=== PATIENT | male | born 1960 ===

== ENCOUNTER 2021-06-27 01:02 | Inpatient (IN) | payer OTHER ==
[~2021-06-27] VITALS: Ht 180.3 cm; Wt 100.7 kg
[2021-06-27] MEDS ORDERED: BREO ELLIPTA 11 EACH INH (02:06)
[2021-06-27] MEDS ORDERED: TRILEPTAL300 MG PO (02:07)
[2021-06-27] MEDS ORDERED: ZOLOFT100 MG PO (02:08)
[2021-06-27] MEDS ORDERED: BUSPIRONE10 MG PO (02:08)
[2021-06-27] MEDS ORDERED: PROAIR HFA8.5 GM INH (02:11)
[2021-06-27] MEDS ORDERED: SPIRIVA RESPIMAT4 GM INH (02:12)
[2021-06-27 09:07] VITALS: BP 140/81
[2021-06-27 20:00] VITALS: BP 122/67
[2021-06-28 06:47] LABS: BASO % 0.4 % (0.0-1.0); EOS # 0.3 10*3/uL (0.0-0.4); EOS % 6.3 % (1.0-4.0); HEMATOCRIT 42.2 % (42.0-52.0); LYMPH # 1.5 10*3/uL (1.3-4.4); LYMPH % 32.2 % (27.0-41.0); MEAN CELL VOLUME 105.2 fl (80.0-94.0); MEAN CORPUSCULAR HGB 33.4 pg (27.0-31.0); MEAN CORPUSCULAR HGB CONC 31.8 g/dl (33.0-37.0); MEAN PLATELET VOLUME 10.6 fl (9.6-12.3); MONO # 0.4 10*3/uL (0.1-1.0); MONO % 8.9 % (3.0-9.0); NEUT # 2.4 10*3/uL (2.3-7.9); PLATELET COUNT AUTOMATED 127 10*3/uL (130-400); RED BLOOD COUNT 4.01 10*6/uL (4.50-5.90); RED CELL DISTRI WIDTH 14.4 % (0-14.5); WHITE BLOOD COUNT 4.6 10*3/uL (4.8-10.8)
[2021-06-28 06:57] LABS: ALBUMIN 2.6 gm/dl (3.1-4.5); ALKALINE PHOSPHATASE 83 U/L (45-117); BUN 8 mg/dl (7-24); CHLORIDE 107 mmol/L (98-107); CHOLESTEROL 169 mg/dL (<200); CREATININE 0.72 mg/dL (0.70-1.30); LDL CHOLESTEROL 107 mg/dL (9-159); SGOT/AST 27 IU/L (3-35); SGPT/ALT 31 U/L (12-78); SODIUM 141 mmol/L (136-145); TOTAL PROTEIN 6.9 gm/dL (6.4-8.2); TRIGLYCERIDES 119 mg/dl (<150)
[2021-06-28 07:04] LABS: THYROID STIM HORMONE (HS) 0.858 uIU/ml (0.358-4.75)
[2021-06-28 07:25] LABS: VITAMIN D, 25-HYDROXY 30.1 ng/mL (30-100)
[2021-06-28 07:32] VITALS: BP 146/87
[2021-06-28 09:47] LABS: BILIRUBIN Negative (Negative); BLOOD Negative (Negative); CLARITY Clear (Clear); COLOR Yellow (Yellow); GLUCOSE Negative (Negative); KETONE Negative (Negative); LEUKO ESTERASE Negative (Negative); NITRITE Negative (Negative); PH 5.5 (4.5-8.0)
[2021-06-28 10:12] LABS: EPITHELIAL CELLS 0-2; WBC 0-2 wbc/hpf (0-5)
[2021-06-28 19:52] VITALS: BP 146/74
[2021-06-29 08:00] VITALS: BP 146/78
[2021-06-29 20:00] VITALS: BP 138/69
[2021-06-30 08:15] VITALS: BP 123/68
[2021-06-30 20:00] VITALS: BP 149/69
[2021-07-01 02:20] VITALS: BP 122/72
[2021-07-01 19:16] VITALS: BP 125/71
[2021-07-02 06:14] LABS: BASO % 0.4 % (0.0-1.0); EOS # 0.3 10*3/uL (0.0-0.4); EOS % 6.2 % (1.0-4.0); LYMPH # 1.4 10*3/uL (1.3-4.4); LYMPH % 29.6 % (27.0-41.0); MEAN CELL VOLUME 104.8 fl (80.0-94.0); MEAN CORPUSCULAR HGB 33.3 pg (27.0-31.0); MEAN CORPUSCULAR HGB CONC 31.8 g/dl (33.0-37.0); MONO # 0.4 10*3/uL (0.1-1.0); NEUT # 2.7 10*3/uL (2.3-7.9); NEUT % 54.6 % (47.0-73.0); PLATELET COUNT AUTOMATED 131 10*3/uL (130-400); RED CELL DISTRI WIDTH 14.4 % (0-14.5); WHITE BLOOD COUNT 4.9 10*3/uL (4.8-10.8)
[2021-07-02 08:00] VITALS: BP 121/69
[2021-07-02 20:00] VITALS: BP 118/65
[2021-07-03 08:02] VITALS: BP 146/84
[2021-07-03 20:00] VITALS: BP 127/74
[2021-07-04 08:00] VITALS: BP 130/72
[2021-07-04 20:00] VITALS: BP 146/78
[2021-07-05 08:00] VITALS: BP 126/69
[2021-07-05] MEDS ORDERED: TRINTELLIX20 MG PO (10:02)
[2021-07-05] MEDS ORDERED: HYDROXYZINE HCL25 MG PO (10:02)
[2021-07-05] MEDS ORDERED: TRILEPTAL300 MG PO (10:02)
== END 2021-07-05 12:20 | disposition home or self-care (01) | DRG 885 ==
LOC: 3N 01:02
PROVIDERS: Student in an Organized Health Care Education/Training Program; ADMIT Psychiatry & Neurology Psychiatry; ATTEND Psychiatry & Neurology Psychiatry
DX: F33.9 Major depressive disorder, recurrent, unspecified (principal); N18.9 Chronic kidney disease, unspecified; R45.851 Suicidal ideations; F41.9 Anxiety disorder, unspecified; J44.9 Chronic obstructive pulmonary disease, unspecified; J45.20 Mild intermittent asthma, uncomplicated; E03.9 Hypothyroidism, unspecified; M19.90 Unspecified osteoarthritis, unspecified site; E78.5 Hyperlipidemia, unspecified; D53.9 Nutritional anemia, unspecified; G47.33 Obstructive sleep apnea (adult) (pediatric); D72.819 Decreased white blood cell count, unspecified; F34.1 Dysthymic disorder; F60.9 Personality disorder, unspecified; Z90.49 Acquired absence of other specified parts of digestive tract; Z98.49 Cataract extraction status, unspecified eye; Z88.0 Allergy status to penicillin; Z88.6 Allergy status to analgesic agent; Z88.8 Allergy status to other drugs, medicaments and biological substances; Z79.899 Other long term (current) drug therapy